=== PATIENT | female | born 1945 | race Caucasian/White ===

== ENCOUNTER 2019-06-11 09:55 | Outpatient (CLI) | payer MEDICARE, SELFPAY ==
[2019-06-11 10:29] LABS: Basophils % 0.5 %; Eosinophils # 0.2 10^3/uL (0.0-0.8); Eosinophils % 2.7 %; Hematocrit 40.6 % (37.0-47.0); Hemoglobin 13.5 g/dL (11.5-15.3); Lymphocytes # 1.3 10^3/uL (0.8-4.8); Lymphocytes % 21.3 %; Mean Corpuscular HGB Conc 33.3 g/dL (30.0-36.0); Mean Corpuscular Hemoglobin 30.9 pg (28.0-34.0); Mean Corpuscular Volume 92.9 fL (81-99); Mean Platelet Volume 9.1 fL (7.4-10.4); Monocytes # 0.4 10^3/uL (0.2-0.9); Monocytes % 6.3 %; Neutrophils # 4.3 10^3/uL (1.8-7.7); Neutrophils % 68.9 %; Nucleated Red Blood Cells % 0 %; Platelet Count 229 10^3/cmm (130-400); Red Blood Count 4.37 10^6/uL (4.1-5.3); Red Cell Distribution Width 12.6 % (12.1-15.1); White Blood Count 6.2 10^3/uL (4.0-10.0)
[2019-06-11 10:38] LABS: Alanine Aminotransferase 10 U/L (0-33); Albumin Level 4.2 g/dL (3.5-5.2); Alkaline Phosphatase 44 IU/L (35-105); Anion Gap 13.5 (5-19); Aspartate Amino Transferase 18 U/L (0-32); Blood Urea Nitrogen 21 mg/dL (8-23); Calcium 10.2 mg/dL (8.5-10.5); Carbon Dioxide 28 mmol/L (22-29); Chloride 102 mmol/L (98-107); Globulin 2.5 g/dL (1.3-4.6); Glucose 117 mg/dL (65-115); Potassium 3.5 mmol/L (3.5-5.1); Sodium 140 mmol/L (136-145); Total Bilirubin 0.4 mg/dL (0.15-1.2); Total Protein 6.7 g/dL (6.6-8.7)
--- NOTE | 2019-06-11 12:27 | ONC FU_ITS ---
Dr. Ugarte follow up note Patient: Fe Lynch Unit #: [id number]: 1945 Dicatated By: Peña Ugarte M.D.Date of Visit:Jun 11, 2019 Onc Med Follow-up/Prog Note History of Present Illness: She is is a 73 -year-old postmenopausal woman with history of hormone replacement therapy in the past. On routine screening mammogram from 09/04/2014 was discovered to have a new 11 mm density in the central portion of left breast. An ultrasound and repeat mammogram on 10/06/2014 confirmed the findings. A core biopsy on 10/27/2014 revealed infiltrating ductal carcinoma, ER 94%, NJ 94%, HER-2/artem not amplified at 1.2 by FISH, 2+ by IHC. Ki-67 index 13%. On 11/20/2014 she was taken to the OR by Dr. Ventura for left breast lumpectomy and sentinel lymph node biopsy. Her surgical pathology revealed 1 cm grade 2 infiltrating ductal carcinoma with minor component of DCIS, and present lymphovascular invasion. All final margins were reported as negative, although the inferior margin was 1 mm. One sentinel lymph node was negative for metastatic disease. She was first seen on 12/08/14. Oncotype DX score returned at 20, corresponding to 14% risk of recurrence over the next 10 years. The patient opted against adjuvant chemotherapy. She began on adjuvant hormonal therapy with Femara in November 2014. She completed 5160 cGy of adjuvant radiation treatment on 02/23/2015. Vitamin D deficiency was diagnosed, she began on replacement. DEXA scan showed worsening osteopenia, she began on Fosamax. Follow-up mammogram done on 03/05/2019 showed BI-RADS 2 benign. Came for follow-up, denies any specific complaints, no more hot flashes but occasionally facial flushing. No sweating, no night sweats, no fever or chills, no nausea or vomiting. No generalized weakness or fatigue. Tolerating Femara well otherwise. Medications: B Complex-C 3 Tablet Oral daily, buspar (10 mg) Tablet Take as Directed, caltrate 1 Tablet daily, Femara 1 (2.5 mg) Tablet Oral daily, FLUoxetine HCl 1 (10 mg) Tablet Oral daily, Fosamax 1 Tablet (of 70 mg) Oral q 7 days, HydroCHLOROthiazide 1 (12.5 mg) Tablet Oral daily, Senior Multivitamin Plus Tablet Oral daily, TraMADol HCl 1 Tablet (of 50 mg) Oral q 6 hours PRN, Vitamin C 1 Capsule Oral daily, Vitamin D3 2 Tablet (of 1000 Units) Tablet, chewable Oral daily Allergies: No Known Allergies. Review of Systems: Constitutional - She has been feeling okay generally. Appetite is good and weight is stable. No fever, chills, hot flashes, or night sweats. Energy level is fair, ENMT - No sinus congestion or drainage. No mouth sores. No difficulty swallowing, Hematologic/Lymphatic - No abnormal bruising or bleeding, Respiratory - She has shortness of breath at times. No pleuritic pain, Cardiovascular - No angina pain, Gastrointestinal - No nausea or vomiting. No heartburn or acid reflux. No diarrhea or constipation. No blood in the stool or black stools, Genitourinary (F) - No dysuria or hematuria. She has urinary frequency. No urgency or incontinence, Musculoskeletal - Pt denies pain, Neurologic - No headache or dizziness. No numbness/paresthesias or other focal neurologic symptoms, Psychiatric - No anxiety or depression. No insomnia. Vital Signs: Performed on Jun 11, 2019 11:37 Height - 62.50 in Weight - 220.4 lbs (HIGH) BSA - 2.00 sq.m BMI - 39.67 (HIGH) Temperature - 98.3 F (LOW) Pulse - 68 /min Respiration - 18 /min BP - 172/75 mm(hg) (HIGH) O2 Sat - 100 % Pain - 0 Performance Status: 0 - Fully active, able to carry on all predisease activities without restrictions. (ECOG) Physical Examination: Respiratory - Lungs are clear to auscultation without rhonchi or wheezing, Cardiovascular - Regular rate and rhythm of heart, Extremities - no edema. Lab/Imaging: Test performed on Dec 25, 2018 14:25 Sodium 140 mmol/L Potassium 3.4 mmol/L Chloride 101 mmol/L CO2 27 mmol/L Anion Gap 15.4 BUN 19 mg/dL Creatinine 0.6 mg/dL Cr Clearance (Est) 131.42 mL/min Glucose 103 mg/dl Calcium 10.5 mg/dL Protein, Total 6.6 g/dL Albumin 4.0 g/dL Globulin 2.6 gm/dL Bilirubin, Total 0.4 mg/dL ALT (SGPT) 15 U/L AST (SGOT) 18 U/L Alkaline Phosphatase 39 U/L WBC 7.4 /cmm RBC 4.20 10 6/cmm HGB 13.7 g/dl HCT 40.3 % MCV 96.2 /cmm MCH 32.6 pg MCHC 33.9 g/dl RDW 13.1 % Platelet Count 251 10 3/cmm MPV 7.6 fl Neutrophils 5.2 10 3/cmm Lymphocytes 1.4 10 3/cmm Monocytes 0.6 10 3/cmm Eosinophils 0.2 10 3/cmm Basophils 0.0 10 3/cmm Neutrophil % 70.0 % Lymphocyte % 19.0 % Monocyte % 8.2 % Eosinophil % 2.5 % Basophils % 0.3 % CA 27.29 0 U/mL Impression: This is a 73 -year-old postmenopausal woman with moderate -grade stage IA, T1c N0 M0, ER/NJ positive 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 She underwent left breast lumpectomy and sentinel lymph node biopsy with axillary lymph node dissection on 11/20/2014. Oncotype DX score returned at intermediate range- 20, corresponding to 14% risk of distant recurrence following hormonal therapy. The patient decided to opt out of adjuvant chemotherapy treatment. She completed adjuvant radiation treatment 05/26/14. She began on adjuvant hormonal therapy with aromatase inhibitors Femara 2.5 mg daily, in November 2014, planned for 5 years. Follow-up mammogram done on 12/11/2017 showed BI-RADS Category 2 benign History of osteoporosis in the past treated with Fosamax and now on vitamin D and calcium supplements. As per patient, her PMD did DEXA scan and it showed resolution of osteoporosis. Plan: Discussed with patient regarding her labs white blood count 6.2 hemoglobin 13.5 crit 40.6 platelets 229,000 CMP within normal limits including calcium 10.2 compared to 10.5 on 12/25/2018 Clinically, patient is doing well with no signs symptom suggestive of recurrence of disease, tolerating adjuvant therapy with Femara well. Her follow-up mammogram done in March 2019 was unremarkable. Patient will complete 5-year-old adjuvant hormonal therapy in November 2019. Mild hypercalcemia noted last time has resolved with adjusting calcium supplement. She'll continue with vitamin D/calcium/Fosamax to prevent osteoporosis She will return to in 6 months with CBC CMP by that time she will conclude her 5 years of hormonal therapy with Femara. At that time we'll discuss follow up plan, Signed By: Peña Ugarte M.D. <<Signature on File>>
== END 2019-06-11 09:56 | disposition home or self-care (01) ==
LOC: ONCMED 09:58
PROVIDERS: Family Provider Family Medicine; PCP Family Medicine; Visit Provider Internal Medicine Hematology & Oncology
DX: C50.112 Malignant neoplasm of central portion of left female breast (principal); E55.9 Vitamin D deficiency, unspecified; M85.80 Other specified disorders of bone density and structure, unspecified site; Z78.0 Asymptomatic menopausal state; Z17.0 Estrogen receptor positive status [ER+]; Z79.811 Long term (current) use of aromatase inhibitors; Z79.899 Other long term (current) drug therapy; Z92.3 Personal history of irradiation
CPT/HCPCS: 36415; 80053; 85025; 99214

== ENCOUNTER 2019-12-10 11:14 | Outpatient (CLI) | payer MEDICARE, SELFPAY ==
[2019-12-10 11:47] LABS: Basophils % 0.5 %; Eosinophils # 0.1 10^3/uL (0.0-0.8); Eosinophils % 2.3 %; Hemoglobin 13.8 g/dL (11.5-15.3); Lymphocytes # 1.2 10^3/uL (0.8-4.8); Lymphocytes % 20.4 %; Mean Corpuscular HGB Conc 32.9 g/dL (30.0-36.0); Mean Corpuscular Hemoglobin 32.2 pg (28.0-34.0); Mean Corpuscular Volume 98.1 fL (81-99); Mean Platelet Volume 9.2 fL (7.4-10.4); Monocytes # 0.5 10^3/uL (0.2-0.9); Monocytes % 7.9 %; Neutrophils # 4.08 10^3/uL (1.8-7.7); Neutrophils % 68.4 %; Nucleated Red Blood Cells % 0 %; Platelet Count 264 10^3/cmm (130-400); Red Blood Count 4.28 10^6/uL (4.1-5.3); Red Cell Distribution Width 12.7 % (12.1-15.1)
[2019-12-10 12:08] LABS: Alanine Aminotransferase 14 U/L (0-33); Albumin Level 4.4 g/dL (3.5-5.2); Alkaline Phosphatase 41 IU/L (35-105); Anion Gap 10.5 (5-19); Aspartate Amino Transferase 18 U/L (0-32); Blood Urea Nitrogen 10 mg/dL (8-23); Carbon Dioxide 30 mmol/L (22-29); Chloride 105 mmol/L (98-107); Globulin 2.1 g/dL (1.3-4.6); Glucose 110 mg/dL (65-115); Osmolality Calculated 291 mOsm/kg (285-295); Potassium 3.5 mmol/L (3.5-5.1); Sodium 142 mmol/L (136-145); Total Bilirubin 0.4 mg/dL (0.15-1.2); Total Protein 6.5 g/dL (6.6-8.7)
--- NOTE | 2019-12-12 13:37 | ONC FU_ITS ---
Dr. Ugarte follow up note Patient: Fe Lynch Unit #: [id number]: 1945 Dicatated By: Peña Ugarte M.D.Date of Visit:Dec 10, 2019 Onc Med Follow-up/Prog Note History of Present Illness: She is is a 74 -year-old postmenopausal woman with history of hormone replacement therapy in the past. On routine screening mammogram from 09/04/2014 was discovered to have a new 11 mm density in the central portion of left breast. An ultrasound and repeat mammogram on 10/06/2014 confirmed the findings. A core biopsy on 10/27/2014 revealed infiltrating ductal carcinoma, ER 94%, [place] 94%, HER-2/artem not amplified at 1.2 by FISH, 2+ by IHC. Ki-67 index 13%. On 11/20/2014 she was taken to the OR by Dr. Ventura for left breast lumpectomy and sentinel lymph node biopsy. Her surgical pathology revealed 1 cm grade 2 infiltrating ductal carcinoma with minor component of DCIS, and present lymphovascular invasion. All final margins were reported as negative, although the inferior margin was 1 mm. One sentinel lymph node was negative for metastatic disease. She was first seen on 12/08/14. Oncotype DX score returned at 20, corresponding to 14% risk of recurrence over the next 10 years. The patient opted against adjuvant chemotherapy. She began on adjuvant hormonal therapy with Femara in November 2014.And completed 5 years of adjuvant hormone therapy in November 2019 She completed 5160 cGy of adjuvant radiation treatment on 02/23/2015. Vitamin D deficiency was diagnosed, she began on replacement. DEXA scan showed worsening osteopenia, she began on Fosamax. Follow-up mammogram done on 03/05/2019 showed BI-RADS 2 benign. Came for follow-up, denies any specific complaints, no fever chills, no nausea or vomiting, no diarrhea constipation, no weight loss, no night sweats, no new bony pains. Tolerating adjuvant therapy with Femara well and now she has completed 5 years of adjuvant hormonal therapy this month Medications: B Complex-C 3 Tablet Oral daily, buspar (10 mg) Tablet Take as Directed, caltrate 1 Tablet daily, Femara 1 (2.5 mg) Tablet Oral daily, FLUoxetine HCl 1 (10 mg) Tablet Oral daily, Fosamax 1 Tablet (of 70 mg) Oral q 7 days, Lisinopril 1 Tablet (of 10 mg) Oral daily, Senior Multivitamin Plus Tablet Oral daily, TraMADol HCl 1 Tablet (of 50 mg) Oral q 6 hours PRN, Vitamin C 1 Capsule Oral daily, Vitamin D3 2 Tablet (of 1000 Units) Tablet, chewable Oral daily Allergies: No Known Allergies. Review of Systems: Review of Systems is not available for this patient. Vital Signs: Performed on Dec 10, 2019 12:59 Height - 62.50 in Weight - 204.0 lbs (LOW) BSA - 1.94 sq.m BMI - 36.72 (HIGH) Temperature - 97.0 F (LOW) Pulse - 70 /min Respiration - 24 /min BP - 147/58 mm(hg) (HIGH) O2 Sat - 100 % Pain - 0 Performance Status: 0 - Fully active, able to carry on all predisease activities without restrictions. (ECOG) Physical Examination: Respiratory - Lungs are clear, Cardiovascular - Regular rate and rhythm of heart, Gastrointestinal - Soft, bowel sounds present, Extremities - No visible edema. Lab/Imaging: Most recent lab results are not available for this patient. Impression: This is a 73 -year-old postmenopausal woman with moderate -grade stage IA, T1c N0 M0, ER/MO positive 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 She underwent left breast lumpectomy and sentinel lymph node biopsy with axillary lymph node dissection on 11/20/2014. Oncotype DX score returned at intermediate range- 20, corresponding to 14% risk of distant recurrence following hormonal therapy. The patient decided to opt out of adjuvant chemotherapy treatment. She completed adjuvant radiation treatment 05/26/14. She began on adjuvant hormonal therapy with aromatase inhibitors Femara 2.5 mg daily, in November 2014,Completed 5 years of adjuvant hormone therapy in November 2019. Follow-up mammogram done on 12/11/2017 showed BI-RADS Category 2 benign History of osteoporosis in the past treated with Fosamax and now on vitamin D and calcium supplements. As per patient, her PMD did DEXA scan and it showed resolution of osteoporosis. Plan: Discussed with patient regarding her labs white blood count 6 hemoglobin 13.8 hematocrit 42 platelets 264,000 CMP within normal limits Clinically, patient doing well with no signs symptom suggestive of recurrence of disease, patient has completed 5 years of adjuvant hormone therapy with Femara well. At this point, will discontinue Femara and she will have us schedule follow-up mammogram in March 2020 and will see her back in a year with a follow-up mammogram.Patient was advised to maintain active lifestyle and watch her weight. Signed By: Peña Ugarte M.D. <<Signature on File>>
== END 2019-12-10 11:15 | disposition home or self-care (01) ==
LOC: ONCMED 11:14
PROVIDERS: PCP Family Medicine; Visit Provider Internal Medicine Hematology & Oncology
DX: Z08 Encounter for follow-up examination after completed treatment for malignant neoplasm (principal); Z85.3 Personal history of malignant neoplasm of breast; Z92.23 Personal history of estrogen therapy; Z78.0 Asymptomatic menopausal state; Z92.3 Personal history of irradiation
CPT/HCPCS: 80053; 85025; G0463

== ENCOUNTER 2020-03-12 15:08 | Outpatient (CLI) | payer MEDICARE, SELFPAY ==
--- NOTE | 2020-03-12 15:16 | MM_ITS ---
WS: [id number] BILATERAL DIGITAL SCREENING MAMMOGRAPHY WITH CAD CLINICAL INFORMATION: HX OF BREAST CA HISTORY: Screening mammogram. No current complaints. COMPARISON: [id number] TECHNIQUE: Bilateral CC and MLO views. FINDINGS: The breasts are composed of heterogeneous fibroglandular density tissue, which can limit the detectio n of small underlying mass lesions. Faint asymmetries left breast along the posterior nipple line sli ghtly more prominent compared to previous. Recommend left diagnostic mammography and ultrasound. Right breast is unchanged. MM/[id number] IMPRESSION: BI-RADS: 0-Incomplete: Need additional imaging evaluation FOLLOW UP: Need Additional Imaging Recommend left breast diagnostic mammography and ultrasound.
--- NOTE | 2020-03-13 11:41 | PC.NURSE ---
Verbal order from Claudia/Dr. Dailey nurse for mammo with US if indicated. John PARRA
== END 2020-03-12 15:09 | disposition home or self-care (01) ==
PROVIDERS: PCP Family Medicine; Visit Provider Internal Medicine Hematology & Oncology
DX: Z85.3 Personal history of malignant neoplasm of breast (principal)
CPT/HCPCS: 77066

== ENCOUNTER 2020-04-06 09:27 | Outpatient (CLI) | payer MEDICARE, SELFPAY ==
--- NOTE | 2020-04-06 09:30 | MM_ITS ---
WS: [id number] LEFT DIGITAL MAMMOGRAPHY WITH CAD CLINICAL INFORMATION: Left breast asymmetry COMPARISON: March 12, 2020 TECHNIQUE: 1 views of the left breast were obtained. FINDINGS: The left breast is composed of heterogeneous fibroglandular density tissue, which can limit the detec tion of small underlying mass lesions. Prior postoperative changes left breast with lumpectomy. Stabl e asymmetric densities along the posterior nipple line. Ultrasound is pending. ULTRASOUND BREAST LEFT TECHNIQUE: Ultrasound left breast focused area of concern. CLINICAL INFORMATION: Left breast asymmetry COMPARISON: None. FINDINGS: Ultrasound left breast the 12:00 to 3:00 position and at the areola. Dense shadowing breast tissue at the areola likely due to scar tissue from prior lumpectomy. No cystic or solid lesions. No lesions t o target for biopsy. Findings are benign. MM/[place] [id number] IMPRESSION: BI-RADS: 2-Benign FOLLOW UP: 1 Year Follow-up Recommend return to annual diagnostic mammography.
--- NOTE | 2020-04-06 10:15 | US_ITS ---
WS: [id number] LEFT DIGITAL MAMMOGRAPHY WITH CAD CLINICAL INFORMATION: Left breast asymmetry COMPARISON: March 12, 2020 TECHNIQUE: 1 views of the left breast were obtained. FINDINGS: The left breast is composed of heterogeneous fibroglandular density tissue, which can limit the detec tion of small underlying mass lesions. Prior postoperative changes left breast with lumpectomy. Stabl e asymmetric densities along the posterior nipple line. Ultrasound is pending. ULTRASOUND BREAST LEFT TECHNIQUE: Ultrasound left breast focused area of concern. CLINICAL INFORMATION: Left breast asymmetry COMPARISON: None. FINDINGS: Ultrasound left breast the 12:00 to 3:00 position and at the areola. Dense shadowing breast tissue at the areola likely due to scar tissue from prior lumpectomy. No cystic or solid lesions. No lesions t o target for biopsy. Findings are benign. US/US breast LT limited* [id number] IMPRESSION: BI-RADS: 2-Benign FOLLOW UP: 1 Year Follow-up Recommend return to annual diagnostic mammography.
== END 2020-04-06 09:28 | disposition home or self-care (01) ==
LOC: ONCMED 09:30
PROVIDERS: PCP Family Medicine; Visit Provider Internal Medicine Hematology & Oncology
DX: R92.8 Other abnormal and inconclusive findings on diagnostic imaging of breast (principal); C50.812 Malignant neoplasm of overlapping sites of left female breast; Z17.0 Estrogen receptor positive status [ER+]
CPT/HCPCS: 76642; 77065

== ENCOUNTER → 2021-01-28 13:24 | Outpatient (BNVA) | payer MEDICARE, SELFPAY | PROVIDERS: PCP Family Medicine; Visit Provider Internal Medicine | DX: E83.52 Hypercalcemia (principal); E87.6 Hypokalemia; E79.0 Hyperuricemia without signs of inflammatory arthritis and tophaceous disease | CPT/HCPCS: 36415; 80048; 82310; 83970; 99204 ==

== ENCOUNTER 2021-01-28 14:45 | Outpatient (CLI) | payer MEDICARE, SELFPAY ==
[2021-01-28 17:01] LABS: Anion Gap 12.4 (5-19); Blood Urea Nitrogen 14 mg/dL (8-23); Calcium 9.5 mg/dL (8.5-10.5); Carbon Dioxide 27 mmol/L (22-29); Chloride 105 mmol/L (98-107); Glucose 93 mg/dL (65-115); Osmolality Calculated 292 mOsm/kg (285-295); Potassium 3.4 mmol/L (3.5-5.1); Sodium 141 mmol/L (136-145)
[2021-01-28 17:14] LABS: Calcium 9.7 mg/dL (8.5-10.5)
[2021-01-28 17:22] LABS: Parathyroid Hormone 52.7 pg/mL (15-65)
== END 2021-01-28 14:46 | disposition home or self-care (01) ==
PROVIDERS: PCP Family Medicine; Visit Provider Internal Medicine
DX: E87.6 Hypokalemia (principal); E83.52 Hypercalcemia
CPT/HCPCS: 36415; 80048; 82310; 83970

== ENCOUNTER 2021-05-05 14:59 | Outpatient (CLI) | payer MEDICARE, SELFPAY ==
--- NOTE | 2021-05-05 15:06 | MM_ITS ---
WS: [id number] DIAGNOSTIC BILATERAL DIGITAL MAMMOGRAM WITH CAD HISTORY: SCREENING, history of LEFT breast cancer. COMPARISON: 04/06/2020, 03/12/2020, 03/05/2019 and 12/11/2017 TECHNIQUE: Bilateral craniocaudad, mediolateral oblique, and mediolateral views are submitted. Comput er aided detection utilized. Breast composition: There are scattered areas of fibroglandular density. Mild asymmetry and postopera tive changes in the anterior lateral LEFT breast. Mild trabecular thickening. No new mass or distorti on. MM/[place] [id number] IMPRESSION: BI-RADS: 2-Benign FOLLOW UP: 1 Year Follow-up
--- NOTE | 2021-05-05 16:05 | XR_ITS ---
WS: [id number] SCREENING DEXA SCAN [facility] CLINICAL INFORMATION: MENOPAUSE COMPARISON: August 09, 2017 FINDINGS: The L1-L4 bone mineral density measures 1.093 g/cm2. This corresponds to a T score score of -0.7 and Z score of 0.0. Left femoral neck bone mineral density measures 0.804 g/cm2. This corresponds to a T score of -1.6 an d Z score of -0.7. Right femoral neck bone mineral density measures 0.759 g/cm2. This corresponds to a T score -2.0of an d Z score of -1.0. Mean femoral neck bone mineral density measures 0.782 g/cm2. This corresponds to a T score of -1.8 an d Z score of -0.9. XR/XR DEXA axial skeleton* [id number] IMPRESSION: Normal bone mineral density lumbar spine. Osteopenia femoral necks. Patient's FRAX calculated 10 year probability for major osteoporotic fracture i s 22.9 % and osteoporotic hip fracture is 6.6%.
== END 2021-05-05 15:00 | disposition home or self-care (01) ==
LOC: RADSHAW 15:03
PROVIDERS: PCP Family Medicine; Visit Provider Family Medicine
DX: Z85.3 Personal history of malignant neoplasm of breast (principal); Z78.0 Asymptomatic menopausal state
CPT/HCPCS: 77066; 77080

== ENCOUNTER 2024-06-26 11:02 | Outpatient (CLI) | payer MEDICARE, SELFPAY ==
--- NOTE | 2024-06-26 11:20 | XR_ITS ---
WS: [id number] SCREENING DEXA SCAN [facility] CLINICAL INFORMATION: MENOPAUSAL SYNDROME COMPARISON: 2021 FINDINGS: The L1-L4 bone mineral density measures 1.193 g/cm2. This corresponds to a T score score of 0.1 and Z score of 0.8. Left femoral neck bone mineral density measures 0.770 g/cm2. This corresponds to a T score of -1.9 and Z score of -0.8. Right femoral neck bone mineral density measures 0.829 g/cm2. This corresponds to a T score -1.4of and Z score of -0.4. Mean femoral neck bone mineral density measures 0.799 g/cm2. This corresponds to a T score of -1.7 and Z score of -0.6. XR/XR DEXA axial skeleton* [id number] IMPRESSION: Normal bone mineralization lumbar spine. Osteopenia femoral necks. Patient's FRAX calculated 10 year probability for major osteoporotic fracture i s 17.8% and osteoporotic hip fracture is 6.1%. Bone mineral density lumbar spine increased 9.1% Bone mineral density femoral necks increased 2.2%
--- NOTE | 2024-06-26 11:20 | MM_ITS ---
WS: [id number] DIAGNOSTIC BILATERAL DIGITAL BREAST TOMOSYNTHESIS MAMMOGRAPHY WITH CAD HISTORY: HX OF BREAST CANCER/DISORDER OF BREAST COMPARISON: 05/05/2021, 04/06/2020 TECHNIQUE: Bilateral craniocaudad, mediolateral oblique, and mediolateral views are submitted with tomosynthesis and SM. Computer aided detection utilized. Breast composition: There are scattered areas of fibroglandular density. Distortion and postoperative changes LEFT breast. Stable post operative site over multiple prior years. Small dystrophic calcifications central to the nipple in the LEFT breast. No new mass or suspicious grouping of calcifications. MM/MM diag BI tomosynthesis [id number] IMPRESSION: BI-RADS: 2 - Benign. FOLLOW UP: 1 Year Follow-up
== END 2024-06-26 11:03 | disposition home or self-care (01) ==
LOC: RAD 11:06
PROVIDERS: PCP Family Medicine; Visit Provider Nurse Practitioner
DX: Z78.0 Asymptomatic menopausal state (principal); N64.9 Disorder of breast, unspecified; Z85.3 Personal history of malignant neoplasm of breast; M85.88 Other specified disorders of bone density and structure, other site; R92.323 Mammographic fibroglandular density, bilateral breasts; R92.1 Mammographic calcification found on diagnostic imaging of breast
CPT/HCPCS: 77062; 77080; G0279